=== PATIENT | female | born 1985 | race American Indian/Alaskan Native ===

== ENCOUNTER 2020-12-25 02:38 | Emergency (ER) | payer MEDICARE ==
[2020-12-25] MEDS ORDERED: levETIRAcetam 1000 MG/NS 0.75% 1,000 MG/100 ML BAG IV ONE (03:19)
--- NOTE | 2020-12-25 03:28 | Emergency Department Report ---
HPI - HPI HPI: Room 35 The patient is a 35-year-old female present with a chief complaint of seizure. Patient has a history of seizures and reportedly had a witnessed generalized tonic-clonic seizure from family. EMS arrived the patient was still actively seizing so she was administered Versed 5 mg IM x1. Upon arrival to the ED there is no seizure activity and the patient was postictal 05:42 Patient states she has been compliant with her seizure medication. Patient states she has had vaginal bleeding for approximately 27 days. Patient states she feels approximately 6-7 pads per day. Patient states this is happened to her in the past several months ago but she is never given a diagnosis. <ELVA RASHID - Last Filed: 12/25/20 05:42> <NURIA CLAUDIO - Last Filed: 12/25/20 07:48> - General Chief Complaint: Seizure Time Seen by Provider: 12/25/20 03:15 ED Past Medical Hx - Past Medical History Previous Medical History?: Yes Hx Seizures: Yes - Surgical History Past Surgical History?: No - Family History Family history: no significant - Social History Smoking Status: Unknown if ever smoked <ELVA RASHID - Last Filed: 12/25/20 05:42> <NURIA CLAUDIO - Last Filed: 12/25/20 07:48> - Medications Home Medications: Home Medications Medication Instructions Recorded Confirmed Last Taken Type levETIRAcetam [Keppra TAB] 500 mg PO BID #60 tablet 12/25/20 Unknown Rx medroxyPROGESTERone ACETATE 10 mg PO QDAY #10 tablet 12/25/20 Unknown Rx [Provera] ED Review of Systems ROS: Stated complaint: SEIZURES Other details as noted in HPI Comment: Unobtainable due to pts medical conditions <ELVA RASHID - Last Filed: 12/25/20 05:42> ROS: Stated complaint: SEIZURES Other details as noted in HPI <NURIA CLAUDIO - Last Filed: 12/25/20 07:48> Physical Exam - Physical Exam Vital Signs: Vital Signs 12/25/20 12/25/20 02:55 02:57 Temperature 98.6 F Pulse Rate 60 Respiratory 13 Rate Blood Pressure 131/77 O2 Sat by Pulse 100 Oximetry Physical Exam: GENERAL: The patient is well-developed well-nourished female lying on stretcher not appearing to be in acute distress. [] HEENT: Normocephalic. Atraumatic. Extraocular motions are intact. Patient has moist mucous membranes. NECK: Supple. Trachea midline CHEST/LUNGS: Clear to auscultation. There is no respiratory distress noted. HEART/CARDIOVASCULAR: Regular. There is no tachycardia. There is no gallop rub or murmur. ABDOMEN: Abdomen is soft, nontender. Patient has normal bowel sounds. There is no abdominal distention. SKIN: There is no rash. There is no edema. There is no diaphoresis. NEURO: The patient is awake, but postictal. Patient moves her eyes but does not respond to questions MUSCULOSKELETAL: There is no evidence of acute injury. <ELVA RASHID - Last Filed: 12/25/20 05:42> - Physical Exam Vital Signs: Vital Signs 12/25/20 12/25/20 12/25/20 02:55 02:57 03:01 Temperature 98.6 F Pulse Rate 60 58 L Respiratory 13 14 Rate Blood Pressure 131/77 131/77 O2 Sat by Pulse 100 99 Oximetry 12/25/20 12/25/20 12/25/20 03:31 04:01 04:31 Temperature Pulse Rate 67 54 L 66 Respiratory 13 11 L 12 Rate Blood Pressure 124/73 132/81 112/64 O2 Sat by Pulse 98 99 99 Oximetry 12/25/20 05:01 Temperature Pulse Rate 51 L Respiratory 17 Rate Blood Pressure 119/75 O2 Sat by Pulse 100 Oximetry <NURIA CLAUDIO - Last Filed: 12/25/20 07:48> ED Course Vital Signs 12/25/20 12/25/20 02:55 02:57 Temperature 98.6 F Pulse Rate 60 Respiratory 13 Rate Blood Pressure 131/77 O2 Sat by Pulse 100 Oximetry <ELVA RASHID - Last Filed: 12/25/20 05:42> Vital Signs 12/25/20 12/25/20 12/25/20 02:55 02:57 03:01 Temperature 98.6 F Pulse Rate 60 58 L Respiratory 13 14 Rate Blood Pressure 131/77 131/77 O2 Sat by Pulse 100 99 Oximetry 12/25/20 12/25/20 12/25/20 03:31 04:01 04:31 Temperature Pulse Rate 67 54 L 66 Respiratory 13 11 L 12 Rate Blood Pressure 124/73 132/81 112/64 O2 Sat by Pulse 98 99 99 Oximetry 12/25/20 05:01 Temperature Pulse Rate 51 L Respiratory 17 Rate Blood Pressure 119/75 O2 Sat by Pulse 100 Oximetry - Reevaluation(s) Reevaluation #1: 12/25/20 07:43 The patient is reassessed by myself. Please note that I have seen this patient in the past. She has a another medical record number m [id number] I saw this patient in September of this year for nonspecific convulsive activity. The patient was recently admitted to this hospital, had an MRI of the brain which was negative for acute findings, and a unremarkable CT angiogram head and neck. It was my clinical impression that this patient likely has conversion disorder, and a urine toxicology screen demonstrated the presence of marijuana. Currently, patient is awake, alert, oriented, sober, with a GCS of 15. She had a pelvic ultrasound which was negative for acute findings. I will continue her on Keppra, she is counseled to abstain from marijuana consumption, and counseled to not drive or operate motor vehicles for the next 6 months. She will be referred to local primary care, neurology, and EMBOSSOGRAPH OPERATOR. <NURIA CLAUDIO - Last Filed: 12/25/20 07:48> ED Medical Decision Making - Lab Data Result diagrams: 12/25/20 03:10 12/25/20 03:10 Laboratory Tests 12/25/20 12/25/20 12/25/20 03:10 03:10 03:18 WBC 5.2 RBC 3.99 Hgb 10.6 Hct 31.5 MCV 79 MCH 27 L MCHC 34 RDW 15.2 Plt Count 287 Sodium 141 Potassium 3.7 Chloride 107.3 H Carbon Dioxide 27 Anion Gap 10 BUN 3 L Creatinine 0.7 Estimated GFR > 60 BUN/Creatinine Ratio 4 Glucose 97 Calcium 8.1 L Magnesium HCG, Qual Negative Phenytoin Valproic Acid 12/25/20 12/25/20 03:18 03:19 WBC RBC Hgb Hct MCV MCH MCHC RDW Plt Count Sodium Potassium Chloride Carbon Dioxide Anion Gap BUN Creatinine Estimated GFR BUN/Creatinine Ratio Glucose Calcium Magnesium 2.10 HCG, Qual Phenytoin 0.9 L Valproic Acid < 2.8 L - Differential Diagnosis Seizure <ELVA RASHID - Last Filed: 12/25/20 05:42> - Lab Data Result diagrams: 12/25/20 03:10 12/25/20 03:10 - EKG Data -: EKG Interpreted by Me EKG shows normal: sinus rhythm Rate: normal - EKG Data 12/25/20 07:45 EKG interpreted at 06: 2 2 Sinus rhythm, rate 51 bpm, bradycardia, normal axis, normal P wave axis and low voltage. Intervals within normal limits. This is an abnormal EKG. This is not a STEMI. - Radiology Data Radiology results: report reviewed, image reviewed ULTRASOUND PELVIS, COMPLETE INDICATION: Menorrhagia COMPARISON: No relevant prior imaging study available. TECHNIQUE: Transabdominal imaging was performed. FINDINGS: Uterus: No significant abnormality. There is a 1.1 cm cervical/n abothian cyst. Endometrial echo complex measures 5-6 mm, within normal limits. Right ovary: No significant abnormality. Flow is seen to the right ovary. Left ovary: Nonvisualized. Additional findings: There is no free fluid in the pelvis. IMPRESSION: Unremarkable pelvic ultrasound. Signer Name: Chace Solorio MD Signed: 12/25/2020 5:21 AM Workstation Name: [id number] <NURIA CLAUDIO Filed: 12/25/20 07:48> Critical care attestation.: If time is entered above; I have spent that time in minutes in the direct care of this critically ill patient, excluding procedure time. <ELVA RASHID - Last Filed: 12/25/20 05:42> Critical care attestation.: If time is entered above; I have spent that time in minutes in the direct care of this critically ill patient, excluding procedure time. <NURIA CLAUDIO Last Filed: 12/25/20 07:48> ED Disposition Is pt being admited?: No Does the pt Need Aspirin: No <LEVA RASHID - Last Filed: 12/25/20 05:42> Is pt being admited?: No Does the pt Need Aspirin: No <NURIA CLAUDIO Last Filed: 12/25/20 07:48> Clinical Impression: History of convulsions, Vaginal bleeding Disposition: 01 HOME / SELF CARE / HOMELESS Condition: Good Instructions: Epilepsy, Menorrhagia, [id number] Additional Instructions: Take the prescribed Provera as directed. Take the seizure medication as directed. Do not drive or operate motor vehicles for the next 6 months. Avoid and abstain consumption of alcohol, tobacco, marijuana, and smoke products. Follow-up with a primary care doctor or neurologist within the next 5 to 7 days. Follow-up with an EMBOSSOGRAPH OPERATOR doctor within the next 2 weeks. Please return to the emergency room right away with new pain, worsened pain, migration of pain, projectile vomiting, change in mental status, confusion, inability to tolerate liquid feeds, new, worsened or different symptoms not present on the initial emergency room evaluation. For the patient's convenience, a number of local primary care doctors, neurologist, EMBOSSOGRAPH OPERATOR's have been listed that she may follow-up with. Return to the emergency department should you develop worsening symptoms, inability to tolerate food or liquids, high fever or any other concerns Dr Dasilva is an automobile body repairer helper Dr Fuentes is a local primary care doctor Dr Bryson is a local neurologist Prescriptions: medroxyPROGESTERone ACETATE [Provera] 10 mg PO QDAY #10 tablet Referrals: KENYETTA DASILVA MD [Staff Physician] - 3-5 Days (Dr. Dasilva is a associate drafter. Please follow-up with them for further evaluation of your vaginal bleeding) MARTIN FUENTES MD [Staff Physician] - 3-5 Days RAQUEL BRYSON MD [Staff Physician] - 3-5 Days Forms: Work/School Release Form(ED)
[2020-12-25 03:35] LABS: Hematocrit 31.5 % (30.3-42.9); Hemoglobin 10.6 gm/dl (10.1-14.3); Mean Corpuscular HGB Conc 34 % (30-34); Mean Corpuscular Volume 79 fl (79-97); Platelet Count 287 K/mm3 (140-440); Red Blood Count 3.99 M/mm3 (3.65-5.03); Red Cell Distribution Width 15.2 % (13.2-15.2)
[2020-12-25 03:46] LABS: Blood Urea Nitrogen 3 mg/dL (7-17); Calcium 8.1 mg/dL (8.4-10.2); Hemolysis Index 2
[2020-12-25 04:06] LABS: BUN/Creatinine Ratio 4
--- NOTE | 2020-12-25 06:25 | Ultrasound Report ---
ULTRASOUND PELVIS, COMPLETE INDICATION: Menorrhagia COMPARISON: No relevant prior imaging study available. TECHNIQUE: Transabdominal imaging was performed. FINDINGS: Uterus: No significant abnormality. There is a 1.1 cm cervical/nabothian cyst. Endometrial echo compl ex measures 5-6 mm, within normal limits. Right ovary: No significant abnormality. Flow is seen to the right ovary. Left ovary: Nonvisualized. Additional findings: There is no free fluid in the pelvis. IMPRESSION: Unremarkable pelvic ultrasound. Signer Name: Chace Solorio MD Signed: 12/25/2020 6:21 AM Workstation Name: [id number]
[2020-12-25 07:50] VITALS: BP 100/65
--- NOTE | 2020-12-25 13:55 | Electrocardiograph Report ---
[facility] Test Date: 2020-12-25 Test Time: 06:22:59 Pat Name: ROBERT WEIR Department: Room: Gender: F Environmental Monitoring Technician: MICH : 1985 Requested By: NURIA CLAUDIO Order Number: [id number] Reading MD: Rehan Alba Measurements Intervals [place] Rate: 51 P: 37 NC: 146 QRS: -2 QRSD: 88 T: 21 QT: 415 QTc: 384 Interpretive Statements Slow sinus arrhythmia Low voltage, precordial leads No previous ECG available for comparison Electronically Signed On 12-25-2020 13:55:06 EDT by Rehan Alba
== END 2020-12-25 08:06 | disposition home or self-care (01) ==
LOC: EDSEX 02:38 → ED 02:38
DX: R56.9 Unspecified convulsions (principal); N93.9 Abnormal uterine and vaginal bleeding, unspecified
CPT/HCPCS: 36415; 76856; 80048; 80164; 80185; 83735; 84703; 85027; 93005; 96365; 99284; J1953